=== PATIENT | male | born 1960 | race Caucasian/White ===

== ENCOUNTER 2017-03-09 09:13 | Day surgery (SDC) | payer BC ==
[2017-03-09] MEDS ORDERED: PROPOFOL 10 MG/ML VIAL IV ONE (09:14)
[2017-03-09] MEDS ORDERED: LIDOCAINE 2% MDV (20MG/ML) 20ML VIAL IV ONE (09:14)
[2017-03-09] MEDS ORDERED: MIDAZOLAM HCL 2MG/2ML VIAL IV ONE (09:14)
--- NOTE | 2017-03-10 12:20 | Operative Note ---
DATE OF SURGERY: 03/09/2017 OPERATION: COLONOSCOPY with cold forceps polypectomy x3. PREOPERATIVE DIAGNOSIS: Personal history of adenomatous colon polyps x3. POSTOPERATIVE DIAGNOSIS: Colon polyps x3, status post cold forceps removal. ESTIMATED BLOOD LOSS: Minimum. SPECIMENS: Descending colon polyp, sigmoid colon polyps x2. PREPARATION QUALITY: Good. COMPLICATIONS: None apparent. PROCEDURE: After informed consent was obtained from the patient, he was placed in the left lateral decubitus position in the endoscopy suite, sedated and monitored by the department of anesthesia. Digital rectal exam was unremarkable. A well-lubricated [id number] colonoscope was inserted into the rectum and advanced to the cecum. Preparation quality was good. The cecum, ileocecal valve, appendiceal orifice, ascending colon, and transverse colon were free of inflammatory changes, mass lesions, or polyp. The descending colon revealed a 3-4 mm polyp removed with a cold forceps. The sigmoid colon revealed two 3-4 mm polyps each removed with a cold forceps as well. The remainder of the sigmoid colon and rectum were unrevealing. J-turn views of the anorectum were unremarkable. The endoscope was straightened, the rectal ampulla deflated, and the endoscope was removed. RECOMMENDATIONS: I would suggest the patient resume his medications and diet. He will require a repeat exam in 3-5 years pending tissue histology. As always, thank you for allowing me to participate in the healthcare of your patients. CC: Dr. Wilmer TIPTON
== END 2017-03-09 11:00 | disposition home or self-care (01) ==
LOC: HOP 09:13
PROVIDERS: ATTEND Internal Medicine Gastroenterology
DX: Z12.11 Encounter for screening for malignant neoplasm of colon (principal); Z86.010 Personal history of colon polyps; D12.4 Benign neoplasm of descending colon; D12.5 Benign neoplasm of sigmoid colon